=== PATIENT | male | born 2000 | race Two or more races ===

== ENCOUNTER 2024-08-10 23:46 | Emergency (ER) | payer OTHER ==
[~2024-08-10] VITALS: Ht 182.9 cm; Wt 86.2 kg
[2024-08-11] MEDS ORDERED: METOCLOPRAMIDE HCL 5 MG/ML VIAL IM STA (00:49)
[2024-08-11] MEDS ORDERED: PROMETHAZINE HCL 25 MG/ML AMPUL IM STA (00:50)
[2024-08-11] MEDS ORDERED: 0.9 % SODIUM CHLORIDE 1,000 ML IV STA (00:51)
[2024-08-11] MEDS ORDERED: FAMOtidine 10 MG/ML (4ML VIAL) IV PUSH STA (00:52)
[2024-08-11] MEDS ORDERED: HYOSCYAMINE SULFATE 0.125 MG TAB.SUBL SL STA (00:52)
[2024-08-11] MEDS ORDERED: HYOSCYAMINE SULFATE 0.125 MG TAB.SUBL ONE (01:08)
[2024-08-11] MEDS ORDERED: PROMETHAZINE HCL 25 MG/ML AMPUL ONE (01:08)
[2024-08-11] MEDS ORDERED: METOCLOPRAMIDE HCL 5 MG/ML VIAL ONE (01:09)
[2024-08-11] MEDS ORDERED: FAMOTIDINE/PF 20 MG/2 ML VIAL ONE (01:09)
[2024-08-11 01:35] LABS: HEMATOCRIT 45.1 % (39.0-48.0); HEMOGLOBIN 14.7 g/dL (13-16.00); MEAN CELL VOLUME 79.1 fL (80.0-100.00); MEAN CORPUSCULAR HEMOGLOBIN 25.7 pg (27.00-32.0); MEAN CORPUSCULAR HGB CONC 32.5 g/dl (32.0-36.0); PLATELET COUNT 209 K/uL (150-450); RED BLOOD COUNT 5.71 M/uL (4.00-6.00); RED CELL DISTRIBUTION WIDTH 14.1 % (11.5-14.5)
[2024-08-11 01:56] LABS: CALCIUM 8.9 mg/dL (8.5-10.1); CREATININE SERUM 0.88 mg/dL (0.70-1.30); GFR 105.51; POTASSIUM 3.55 mEq/L (3.5-5.1)
== END 2024-08-11 07:41 | disposition home or self-care (01) ==
LOC: ER 23:46
DX: K52.89 Other specified noninfective gastroenteritis and colitis (principal)
CPT/HCPCS: 36415; 96365; 96366; 99282; J2250; J2765; J3490; J7030